=== PATIENT | female | born 1950 | race Two or more races ===

== ENCOUNTER 2019-07-11 18:44 | Emergency (ER) | payer OTHER ==
[~2019-07-11] VITALS: Ht 134.6 cm; Wt 55.3 kg
[2019-07-11 19:01] VITALS: BP 151/71
--- NOTE | 2019-07-11 19:05 | NUR ---
PT BIBF C/O FLU LIKE SYMPTOMS, BODY ACHES, COUGH W/ CONGESTION, THROAT PAIN AND FEVER X 3 DAYS. PT AAOX4, RR EVEN AND UNLABORED ON RA W/ NAD NOTED. CONNECTED TO THE MONITOR AND POX
[2019-07-11] MEDS ORDERED: ACETAMINOPHEN 325 MG TABLET ONE ×2 (19:17)
[2019-07-11] MEDS ORDERED: IBUPROFEN 400 MG TABLET ONE (19:17)
--- NOTE | 2019-07-11 19:25 | NUR ---
RESIDENTIAL MANAGER AT BEDSIDE FOR XRAY.
[2019-07-11] MEDS ORDERED: ACETAMINOPHEN 325 MG TABLET PO ONE (19:30)
[2019-07-11] MEDS ORDERED: IBUPROFEN 400 MG TABLET PO ONE (19:30)
--- NOTE | 2019-07-11 20:02 | NUR ---
Patient discharged to home in stable condition. Written and verbal after care instructions given. Patient verbalizes understanding of instruction.
== END 2019-07-11 20:02 | disposition home or self-care (01) ==
LOC: ER 18:44
DX: R50.9 Fever, unspecified (principal); R05 Cough; J02.9 Acute pharyngitis, unspecified; E78.00 Pure hypercholesterolemia, unspecified; K21.9 Gastro-esophageal reflux disease without esophagitis; I10 Essential (primary) hypertension
CPT/HCPCS: 71045; 87804 ×2; 99284; J7030